=== PATIENT | male | born 1960 | race Hispanic/Latino ===

== ENCOUNTER 2016-12-02 10:53 | Emergency (ER) | payer SELFPAY ==
[~2016-12-02] VITALS: Ht 149.9 cm; Wt 54.5 kg
[~2016-12-02 10:53] MED LIST: MOTRIN800 MG PO; SILVADENE20 GM TP
[2016-12-02 11:40] LABS: HEMATOCRIT 44.2 % (38.0-50.0); MCHC 33.5 G/DL (30.0-36.0); MCV 89.7 FL (86-99); MEAN PLAT.VOLUME 9.2 uM^3 (9.0-12.4); PLATELET COUNT 229 K/uL (156-360); RBC DIS.WIDTH-CV 14.6 % (11.8-14.6); RBC DIS.WIDTH-SD 47.8 % (39-53); RED BLOOD COUNT 4.93 M/uL (4.00-5.50); WHITE BLOOD COUNT 10.8 K/uL (4.1-10.2)
[2016-12-02 11:52] LABS: CHLORIDE 106 mEq/L (99-109); POTASSIUM 3.9 mEq/L (3.7-5.4); SODIUM 140 mEq/L (136-147)
[2016-12-02 11:54] LABS: GLUCOSE 108 mg/dL (70-99)
[2016-12-02 11:55] LABS: ANION GAP 11 MEQ/L (2-14)
[2016-12-02 11:56] LABS: TOTAL BILIRUBIN 0.5 mg/dL (0.0-1.0)
[2016-12-02 11:58] LABS: ALKALINE PHOSPHATASE 107 IU/L (3-129); GFR ESTIMATE (CALCULATED) 55 mL/min/
[2016-12-02 11:59] LABS: UREA NITROGEN (BUN) 23 mg/dL (9-23)
[2016-12-02 12:01] LABS: LIPASE 10 U/L (1.0-51.0)
[2016-12-02 12:42] LABS: ADD MIUA? YES; BILIRUBIN NEGATIVE; BLOOD SMALL; COLOR YELLOW ((YELLOW)); GLUCOSE (STRIP) 50; KETONES NEGATIVE; LEUKOCYTES LARGE; NITRITE NEGATIVE; PROTEIN (STRIP) NEGATIVE; SPECIFIC GRAVITY 1.006 (1.000-1.030); UROBILINOGEN 0.2 MG/DL (0.2-1.0)
[2016-12-02 12:59] LABS: BACTERIA 3+ /HPF; EPITHELIAL CELLS RARE /HPF; MUCUS TRACE /LPF; WHITE BLOOD CELLS 40-50 /HPF (0-5)
[2016-12-02] MEDS ORDERED: FLOMAX0.4 MG PO (17:53)
[2016-12-02] MEDS ORDERED: KEFLEX500 MG PO (17:53)
[2016-12-02 19:02] VITALS: BP 148/75
== END 2016-12-02 19:04 | disposition home or self-care (01) ==
LOC: EME 10:53
PROVIDERS: Nurse Practitioner Family
PROC: 0T9B70Z Drainage of Bladder with Drainage Device, Via Natural or Artificial Opening (ICD-10-PCS; principal; 2016-12-02)
DX: N30.00 Acute cystitis without hematuria (principal); N32.0 Bladder-neck obstruction; N40.0 Benign prostatic hyperplasia without lower urinary tract symptoms; R19.5 Other fecal abnormalities; F17.200 Nicotine dependence, unspecified, uncomplicated
CPT/HCPCS: 74176; 80053; 81003; 83690; 85027; 87077; 87086; 87186; 99281; 99285; J0696

== ENCOUNTER 2016-12-06 18:19 | Emergency (ER) | payer SELFPAY ==
[~2016-12-06] VITALS: Ht 142.2 cm; Wt 54.8 kg
[~2016-12-06 18:19] MED LIST changes: +FLOMAX0.4 MG PO; +KEFLEX500 MG PO
[2016-12-06 20:47] LABS: ADD MIUA? NO; BILIRUBIN NEGATIVE; BLOOD NEGATIVE; COLOR STRAW ((YELLOW)); GLUCOSE (STRIP) NEGATIVE; KETONES NEGATIVE; LEUKOCYTES NEGATIVE; NITRITE NEGATIVE; PROTEIN (STRIP) NEGATIVE; SPECIFIC GRAVITY 1.009 (1.000-1.030); UCUL ADDED? NO; UROBILINOGEN 0.2 MG/DL (0.2-1.0)
[2016-12-06 20:49] LABS: HEMATOCRIT 42.2 % (38.0-50.0); MCH 30.1 PG (29.0-34.0); MCHC 33.6 G/DL (30.0-36.0); MCV 89.6 FL (86-99); MEAN PLAT.VOLUME 9.3 uM^3 (9.0-12.4); PLATELET COUNT 244 K/uL (156-360); RBC DIS.WIDTH-CV 14.1 % (11.8-14.6); RBC DIS.WIDTH-SD 46.5 % (39-53); RED BLOOD COUNT 4.71 M/uL (4.00-5.50); WHITE BLOOD COUNT 7.8 K/uL (4.1-10.2)
[2016-12-06 21:01] LABS: CHLORIDE 109 mEq/L (99-109); SODIUM 140 mEq/L (136-147)
[2016-12-06 21:03] LABS: GLUCOSE 113 mg/dL (70-99)
[2016-12-06 21:04] LABS: ANION GAP 7 MEQ/L (2-14)
[2016-12-06 21:07] LABS: UREA NITROGEN (BUN) 23 mg/dL (9-23)
[2016-12-06 21:08] LABS: GFR ESTIMATE (CALCULATED) > 59 mL/min/
[2016-12-06 22:09] VITALS: BP 117/81
== END 2016-12-06 22:28 | disposition home or self-care (01) ==
LOC: EME 18:19
PROVIDERS: Physician Assistant
DX: R33.9 Retention of urine, unspecified (principal)
CPT/HCPCS: 80048; 81003; 85027; 99281; 99285